=== PATIENT | female | born 1995 | race Caucasian/White ===

== ENCOUNTER 2022-06-23 01:20 | Emergency (ER) | payer MEDICAID ==
[~2022-06-23] VITALS: Ht 144.8 cm; Wt 94.3 kg
[2022-06-23 01:46] VITALS: BP_SYST 120
--- NOTE | 2022-06-23 01:49 | NUR ---
PATIENT STATES SHE IS FEELING ROUND LIGAMENT PAIN WELL PALPITATIONS X 2 HOURS. PATIENT IS 15 WEEKS GESTATION,
--- NOTE | 2022-06-23 01:50 | NUR ---
PATIENT TAKEN TO BED 4 WITHOUT ISSUE, REPORT GIVEN TO ALYSSA BRIDGES.
--- NOTE | 2022-06-23 02:10 | NUR ---
DR. GARCIA AT BEDSIDE.
[2022-06-23] MEDS ORDERED: ACETAMINOPHEN 325 MG TABLET PO ONE (02:15)
[2022-06-23 02:54] LABS: BASOPHILS # (AUTO) 0.1 K/uL (0.0-0.2); BASOPHILS % (AUTO) 0.7 % (0.0-2.0); EOSINOPHILS # (AUTO) 0.3 K/uL (0.0-0.4); EOSINOPHILS % (AUTO) 2.8 % (0.0-4.0); HEMATOCRIT 32.6 % (36-48); LYMPHOCYTES # (AUTO) 2.8 K/uL (1.0-5.5); LYMPHOCYTES % (AUTO) 26.2 % (20.5-51.5); MEAN CORPUSCULAR VOLUME 88 fL (79.0-98.0); MONOCYTES # (AUTO) 0.7 K/uL (0.0-1.0); MONOCYTES % (AUTO) 6.8 % (1.7-9.3); NEUTROPHILS # (AUTO) 6.7 K/uL (1.8-7.7); NEUTROPHILS % (AUTO) 63.5 % (40.0-70.0); PLATELET COUNT (AUTO) 256 K/uL (130-430); RED BLOOD CELL COUNT(AUTO) 3.71 MIL/uL (4.2-6.2); RED CELL DISTRIBUTION WIDTH 13.1 % (9.0-15.0); WHITE BLOOD COUNT (AUTO) 10.6 K/uL (4.8-10.8)
[2022-06-23 03:27] LABS: CALCIUM 9.6 mg/dL (8.4-11.0); CREATININE 0.71 mg/dL (0.55-1.30); POTASSIUM 3.8 mmol/L (3.5-5.1)
--- NOTE | 2022-06-23 03:30 | NUR ---
PT REPORTS HER HEADACHE HAS SUBSIDED
[2022-06-23 03:43] LABS: ALBUMIN 2.9 g/dL (3.4-4.8); TOTAL BILIRUBIN 0.3 mg/dL (0.0-1.0)
[2022-06-23 04:24] VITALS: BP_SYST 132
--- NOTE | 2022-06-23 04:27 | NUR ---
Patient given written and verbal discharge instructions and verbalizes understanding. ER MD discussed with patient the results and treatment provided. Patient in stable condition. ID arm band removed. Patient educated on pain management and to follow up with PMD. Pain Scale 0/10.Opportunity for questions provided and answered.
== END 2022-06-23 04:24 | disposition home or self-care (01) ==
LOC: SED 01:20
DX: O99.412 Diseases of the circulatory system complicating pregnancy, second trimester (principal); Z3A.15 15 weeks gestation of pregnancy
CPT/HCPCS: 36415; 80053; 85025; 93005; 99284